=== PATIENT | male | born 1940 | race Caucasian/White ===

== ENCOUNTER 2018-12-26 11:37 | Inpatient (IN) ==
--- NOTE | 2018-12-26 12:07 | Emergency Department Note ---
Disposition Clinical Impression: Small bowel obstruction Disposition: Admitted As Inpatient Condition: Fair Time of Disposition: 12:53 General Adult HPI - General Chief complaint: ED Abdominal Pain Stated complaint: bowel abstruction Time Seen by Provider: 12/26/18 11:39 Source: EMS Limitations: no limitations Nursing Notes Reviewed: Yes Vital Signs Reviewed: Yes - History of Present Illness HPI Narrative: 78-year-old male with past medical history of thyroid disease, alcohol use disorder, hyperlipidemia, hypertension, CVA presents from the [place] with a confirmed case of small bowel obstruction. Patient states that he last had a bowel movement yesterday was normal, but throughout the night was vomiting overnight, and has not been able to eat today. He denies fevers, chills, past abdominal surgeries, or diarrhea, constipation. He did have a period of alternating diarrhea and constipation a few days ago, but his last bowel movement yesterday was normal. He currently does not have nausea after taking Zofran at the [facility] clinic, his current pain as a 3 out of 10 prior to arrival it was a 7 out of 10. He describes the pain as dull and achy He went to the [place] urgent care clinic, where he underwent lab testing and a CT of the abdomen and pelvis which showed a distal small bowel obstruction, and was transferred to [facility]. CT scan did not show any signs of malignancy. Pain Scale: 7 - Related Data Home Medications Medication Instructions Recorded Confirmed No Known Home Drugs 12/26/18 12/26/18 Allergies Allergy/AdvReac Type Severity Reaction Status Date / Time No Known Allergies Allergy Verified 02/18/16 13:05 All systems ED: reviewed and negative except as stated. Review of Systems: As Per HPI Constitutional: Denies: fever, chills, weakness, weight change Cardiovascular: Denies: chest pain Respiratory: Denies: cough, dyspnea, wheezes Gastrointestinal: Reports: abdominal pain, nausea, vomiting. Denies: diarrhea, constipation Genitourinary: Denies: urgency, dysuria Endocrine: Denies: fatigue Past Medical History - Past Medical History Attestation: Yes The following information was validated with the patient. Medical history: Reports: CVA, hyperlipidemia, hypertension Psychiatric history: Reports: no psych history - Social History Smoking Status: Smoker, status unknown Smokeless Tobacco Status: No Alcohol use: Reports: occasionally Drug use: Reports: none Physical Exam Vital signs noted please see nurse's notes. Gen.: Well-developed, well-nourished patient lying in bed who appears nontoxic. Head: Atraumatic, normocephalic. Eyes: Sclerae anicteric. No evidence of pallor, No evidence of xanthelasma ENT: Mucous membranes moist, no signs of inflammation or oral sores Heart: Regular rate and rhythm without appreciable murmur, gallops, or rubs. Chest: No signs of Spider Naevi or Gynaecomastia Lungs: Normal respiratory pattern without respiratory distress, lungs clear to auscultation bilaterally. Abdomen: Soft, non-tender, non-distended, no guarding, no rebound tenderness, or peritoneal signs. Bowel sounds present x4, No signs of ascites , no hepatosplenomegaly, No surgical scars, No masses, No bruising, No pulsatile masses, No striae, No caput medusa, Negative Mathew's sign, no tenderness at McBurney's point UG: No CVA tenderness, Skin: Warm and dry without rash, No petechia, No acanthosis nigracans, nor excoriations. No evidence of jaundice nor pallor. No signs of palmar erythema or nail changes Psychiatric: Normal mood and affect Musculoskeletal: No peripheral edema. No signs of digital clubbing Vascular: No Renal or Aortic Bruits - General Limitations: no limitations Course - Consultations Consultation #1: Acute care surgery Time: 12:52 Vital Signs Temperature 98.7 F 12/26/18 11:42 Pulse Rate 73 12/26/18 11:42 Respiratory Rate 16 12/26/18 11:42 Blood Pressure 162/89 12/26/18 11:42 O2 Sat by Pulse Oximetry 96 12/26/18 11:42 Temperature 98.7 F 12/26/18 11:42 Pulse Rate 73 12/26/18 11:42 Respiratory Rate 16 12/26/18 11:42 Blood Pressure 162/89 12/26/18 11:42 O2 Sat by Pulse Oximetry 96 12/26/18 11:42 Oxygen Delivery Oxygen Delivery Room Air Medical Decision Making - MDM Narrative Medical decision making narrative: Patient was greeted upon arrival to the emergency department, a thorough physical exam and history were obtained from the patient. Records from the [place] clinic were reviewed, and a consult to general surgery was placed for his small bowel obstruction. The patient was admitted to the hospital under to medical service under the care of Dr. Pope. DC labs: Troponin 0.015 AST 45 ALT 28 Total bilirubin 0.9 Direct bilirubin 0.1 Alkaline phosphatase 105 Calcium 9.3 Total protein 8.7 Albumin 4.2 Lipase 60 Amylase 30 Sodium 139 Potassium 4.7 Chloride 105 CO2 27 Glucose 183 BUN 20 Creatinine 1.16 GFR greater than 60 White blood count 11.5 hemoglobin 15.9 hematocrit 47.4 absolute neutrophil count 10.5 Chest x-ray shows that there is a streaky opacity within the right upper lobe of the lung this is similar to previous studies. CT shows a distal small bowel obstruction with free fluid within the pelvis diverticulosis and a enlarged prostate - Medical Records Medical records reviewed: Yes I reviewed the patient's medical records. - Lab Data Lab results reviewed: Yes I reviewed the patient's lab results. - Radiology Data Radiology results reviewed: Yes I reviewed the patient's radiology results. Attestation Statement - Attestation Attestation: I, Gil Nunez, examined this patient and my medical decision-making was reviewed with the WATCH TRAIN ASSEMBLER/PA/Advanced Practice Nurse/Resident Physician. I agree with the documented findings, disposition and treatment plan as described except to the extent set forth below. 78-year-old male presents emergency Department with concerns of abdominal pain. Patient was evaluated at the [facility] prior to arrival who obtained a CT of the abdomen pelvis which showed a distal small bowel obstruction. Patient denies hematochezia or melena or hematemesis. No recent trauma. No history of surgeries to the abdomen. Denies history of cancer. Patient will be admitted to hospitalist for further care and evaluation. The surgeon was consulted while he was in the emergency department. Surgeon will see in the hospital.
[2018-12-26] MEDS: 0.9 % Sodium Chloride 1,000 ML IVC SCH (13:02)
[2018-12-26] MEDS ORDERED: Naloxone 0.4 MG/ML INJ IVP PRN (15:33)
[2018-12-26] MEDS ORDERED: *HR* Promethazine 25 MG/ML VIAL IVP PRN ×2 (15:33→22:48)
[2018-12-26] MEDS ORDERED: Ondansetron 4 MG/2 ML VIAL IVP PRN (15:33)
--- NOTE | 2018-12-26 16:12 | Internal Med History&Physical ---
Date of Encounter: 12/26/18 Time of Encounter: 16:25 Internal Medicine - H&P: HPI Chief complaint: Abdominal pain, nausea and vomiting Plans for Post Hospital Care: Home History of present illness: Mr. Appiah is a 78 year old male patient with history of hypertension, previous stroke, intracranial aneurysm per history, hypothyroidism who does not take any medications due to personal preference presented to the ER with complaints of intractable nausea and vomiting that has been ongoing for the past week along with abdominal pain but got much more intense since yesterday afternoon. He reports that he had a bowel movement yesterday morning. After that he has not had any further bowel movements. He has had multiple episodes of nausea and vomiting since then. He received Zofran at the [place] where he initially presented and then in the ER and again on the floor. He continues to have severe abdominal pain is rated as 7 out of 10 in severity that improved to 3 out of 10 after he received oxycodone here. Pain is mainly located in his mid abdominal region. It is nonradiating. He denies any previous intra-abdominal surgeries. No prior episodes of small bowel obstruction. Past Med Surg Social Fam HX - Past Medical History Medical history: CVA, hyperlipidemia, hypertension Additional medical history: Hypothroidism, Claustrophobia,arrythmia,headaches, intracranial aneurysm Psychiatric history: no psych history - Past Surgical History Additional surgical history: diptheria at age of 6 - Social History Smoking Status: Smoker, status unknown Smokeless Tobacco Status: No Alcohol use: occasionally Drug use: none - Additional Family History Additional family history: Family history reviewed and found to be noncontributory at this time Internal Medicine - H&P: Meds No Known Home Drugs 12/26/18 [History] Allergy/AdvReac Type Severity Reaction Status Date / Time No Known Allergies Allergy Verified 02/18/16 13:05 All Systems PM: A 10-system review of systems was performed and is negative for pertinent findings except as documented above in the HPI. - Constitutional Constitutional: anorexia, malaise, no chills, no fever(s), no night sweats - EENT Eyes: no change in vision, no discharge, no pain, no photophobia Ears: no ear discharge, no ear pain, no tinnitus Nose, mouth and throat: no dysphagia, no nasal discharge, no neck pain, no sore throat - Cardiovascular Cardiovascular ROS IM: no chest pain, no diaphoresis, no dyspnea, no lightheaded ness, no palpitations, no syncope - Respiratory Respiratory: no cough, no dyspnea, no wheezing, no excessive phlegm production - Gastrointestinal Gastrointestinal: abdominal pain, nausea, vomiting, no diarrhea, no hematemesis, no hematochezia, no melena - Musculoskeletal Musculoskeletal ROS IM: no numbness, no tingling - Integumentary Integumentary IM: no rash, no unusual bruising - Neurological Neurological ROS: no confusion, no convulsions, no focal weakness, no numbness, no tingling, no tremor(s) - Hematologic/Lymphatic Hematologic/Lymphatic: no easy bruising - Constitutional Vitals: Temp Pulse Resp BP Pulse Ox 98.9 F 88 15 193/95 96 12/26/18 15:03 12/26/18 15:03 12/26/18 15:03 12/26/18 15:03 12/26/18 15:03 Exam: General: Patient is alert, no acute distress, oriented x 3, underweight Head: atraumatic, normocephalic, ENT: Mucous membranes dry Eye: normal appearance, PERRL, no scleral icterus, no conjunctival injection Neck: normal inspection, trachea midline, full ROM, no carotid bruits Chest: normal inspection, symmetric chest rise Respiratory: Good respiratory effort. Normal breath sounds. No wheezing or crackles. Cardiovascular: Regular rate and rhythm. s1 and s2 normal No clicks, rubs, gallops, or murmurs. No pedal edema Abdomen: Abdomen is soft, distended, tender in the epigastric region. Bowel sounds are absent Musculoskeletal: Spontaneously moving all extremities Skin: warm, dry, intact. Neuro: Alert oriented x 3 normal cranial nerves, no focal deficits Psych: Patient's affect is normal Internal Med - H&P Results - Labs Labs: 120, creatinine 1.161 WBC 11.5, platelets 213, hemoglobin 15.9 - Impressions CT of the abdomen and pelvis showed distal small bowel obstruction - Assessment and Plan (1) Small bowel obstruction Current Visit: Yes Status: Acute Assessment and plan: Acute distal small bowel obstruction (2) Hypertensive urgency Current Visit: Yes Status: Acute (3) Hyperlipidemia Current Visit: Yes Status: Chronic Qualifiers: Hyperlipidemia type: other hyperlipidemia Qualified Code(s): E78.49 - Other hyperlipidemia; E78.4 - Other hyperlipidemia (4) Hypothyroidism Current Visit: Yes Status: Chronic Qualifiers: Hypothyroidism type: other Qualified Code(s): E03.8 - Other specified hypothyroidism - Summary of Assessment and Plan Summary of Assessment and Plan: Acute distal small bowel obstruction: CT scan shows distal small bowel obstruction. Will keep patient nothing by mouth. Place NG tube and connected to low intermittent suction. Symptomatic treatment for pain and nausea. Consulted surgery. IV fluids. High risk for complications. Hypertensive urgency: Blood pressure is severely elevated. Patient not on any medications at home for this. We will place him on intravenous medications as needed to bring systolic blood pressure less than 160. Medical records from the [place] show that the patient has a history of intracranial aneurysm. Uncontrolled hypertension does increase his risk of hemorrhagic from this. Explained to the patient about this. However he was becoming more somnolent during my interview as he received oxycodone. We will readdress this later. In the meantime we will continue to monitor blood pressure and treat with intravenous medications. Hypothyroidism: Check free T4 and TSH levels. Hyperlipidemia: Check lipid profile. DVT prophylaxis with SCDs for now. - Time Spent With Patient Total time spent is greater than 50% in coordination of care (as documented) at patient's floor/unit and/or counseling patient:
[2018-12-26] MEDS ORDERED: Ketorolac 15 MG/ML VIAL IVP PRN (17:10)
--- NOTE | 2018-12-26 19:15 | AcuteCare Surgery Consult Note ---
Date of Encounter: 12/26/18 Time of Encounter: 19:05 Assessment and Plan (1) Small bowel obstruction Current Visit: Yes Status: Acute 78M with a high grade distal small bowel obstruction with abdominal pain, more tender than expected; concern for GI mass, ischemia, or adhesion NPO IVF NG to LIWS IV abx History of Present Illness Consult date: 12/26/18 Reason for consult: abdominal pain History of present illness: 78M PMH significant for HTN, CVA who presents with one day of nausea and vomiting (bilious in nature). when evaluating the medial record, the patient reportedly has had nausea and vomiting for the past week. No reports of fevers, chills, chest pain, nor shortness of breath. No sick contacts. When talking more to the patient he has never had a colonoscopy. he does not report any dark tarry stools, bloody stools. 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 In addition he has never had any abdominal surgeries before and his mom at 79 from colon cancer. He reports that he had a bowel movement yesterday morning. In addition the patient has abdominal pain is rated as 7 out of 10 in severity that improved to 3 out of 10 after he received oxycodone here. Pain is mainly located in his mid abdominal region. It is nonradiating. Past Med Surg Social Fam HX - Past Medical History Medical history: CVA, hyperlipidemia, hypertension Additional medical history: Hypothroidism, Claustrophobia,arrythmia,headaches, intracranial aneurysm Psychiatric history: no psych history - Past Surgical History Additional surgical history: diptheria at age of 6 - Social History Smoking Status: Smoker, status unknown Smokeless Tobacco Status: No Alcohol use: occasionally Drug use: none - Additional Family History Additional family history: mother: colon cancer Medications and Allergies No Known Home Drugs 12/26/18 [History] Allergy/AdvReac Type Severity Reaction Status Date / Time No Known Allergies Allergy Verified 02/18/16 13:05 Review of Systems All systems PM: 12 point ROS negative besides HPI findings General Surgery Exam Initial Vital Signs Temp Pulse Resp BP Pulse Ox 98.7 F 73 16 162/89 96 12/26/18 11:42 12/26/18 11:42 12/26/18 11:42 12/26/18 11:42 12/26/18 11:42 - General physical appearance no distress, cachectic - Eyes PERRL, normal ocular movement - ENT normocephalic - Neck trachea midline, no lymphadectomy - Respiratory normal expansion, normal respiratory effort - Cardiovascular Cardiovascular exam: Present: RRR - Abdomen Abdomen general surgery: Present: soft, tender Abdominal Tenderness: Present: diffusely - Integumentary Integumentary general surgery: Present: warm and dry, no abnormal pigmentation - Neurologic Present: CN 2-12 grossly intact - Musculoskeletal Present: normal posture - Psychiatric Psychiatric general surgery: Present: A&Ox3 Exam Initial Vital Signs Temp Pulse Resp BP Pulse Ox 98.7 F 73 16 162/89 96 12/26/18 11:42 12/26/18 11:42 12/26/18 11:42 12/26/18 11:42 12/26/18 11:42 Results - Labs Abnormal lab results POC Glucose 180 mg/dL (70-99) H 12/26/18 16:55 All other labs normal. - Imaging CT scan - abdomen: report reviewed, image reviewed CT scan - pelvis: report reviewed, image reviewed Consult Discharge Plan - Plan [facility]errals: [facility] [Primary Care Provider] -
--- NOTE | 2018-12-26 20:15 | Anesthesia Evaluation PreOp ---
Date of Encounter: 12/26/18 Time of Encounter: 20:13 - Past History Planned Operation: Exlap Cardiac History: HTN, Hyperlipidemia Pulmonary History: Former smoker BAND TUMBLER History: CVA (with no residual deficit), Other (intracranial aneurysm, GOLDEN) Other Medical History: Other (weight los) Anesthesia History: No Prior Anesthetic Complications, Past Anesthesia (hand) Alcohol Use: occasionally Drug use: none Medications and Allergies No Known Home Drugs 12/26/18 [History] Allergy/AdvReac Type Severity Reaction Status Date / Time No Known Allergies Allergy Verified 02/18/16 13:05 - Meds/Allergy Pre-op Review Medications Reviewed: Yes Allergies Reviewed: Yes Beta Blockers on Current Med List: No Anesthesia Results - Labs NH labs: Troponin 0.015 AST 45 ALT 28 Total bilirubin 0.9 Direct bilirubin 0.1 Alkaline phosphatase 105 Calcium 9.3 Total protein 8.7 Albumin 4.2 Lipase 60 Amylase 30 Sodium 139 Potassium 4.7 Chloride 105 CO2 27 Glucose 183 BUN 20 Creatinine 1.16 GFR greater than 60 White blood count 11.5 hemoglobin 15.9 hematocrit 47.4 absolute neutrophil count 10.5 Chest x-ray shows that there is a streaky opacity within the right upper lobe of the lung this is similar to previous studies. CT shows a distal small bowel obstruction with free fluid within the pelvis diverticulosis and a enlarged prostate Anesthesia Exam Vital Signs/O2 Sat, Most Current Temp Pulse Resp BP Pulse Ox 98.0 F 105 15 162/110 97 12/26/18 19:06 12/26/18 19:06 12/26/18 19:06 12/26/18 19:06 12/26/18 19:06 - HEENT Pupil (Motor): Pupils equal, EOMI Mallampati: II Teeth: Edentulous Oral Opening: Greater than 3 - BAND TUMBLER LOC: Oriented BAND TUMBLER Motor: Normal RUE, Normal LUE, Normal RLE, Normal LLE, Normal Face BAND TUMBLER Sensory: Normal: RUE, LUE, RLE, LLE, Face - Cardiac Rhythm: Regular - Pulmonary Breath Sounds: bilateral Clear Respiratory Effort: Symmetrical Anesthesia Assess/Plan ASA Score: 3 Level of consciousness: Cooperative Anesthetic Plan: General Monitoring Plan: Standard Monitors Recovery Plan: PACU
[2018-12-26] MEDS: *HR* Metoprolol 5 MG/5 ML VIAL IVP SCH (20:45)
[2018-12-26] MEDS ORDERED: *HR* Rocuronium Bromide 50 MG/5 ML VIAL ONE (22:28)
[2018-12-26] MEDS ORDERED: Lidocaine -MPF 2% 2 ML VIAL ONE (22:28)
[2018-12-26] MEDS ORDERED: *HR* Succinylcholine 200 MG/10 ML VIAL IVP ONE (22:28)
[2018-12-26] MEDS ORDERED: *HR* FentaNYL (PF) 100 MCG/2 ML VIAL ONE ×2 (22:28→23:55)
[2018-12-26] MEDS ORDERED: *HR* Propofol 200 MG/20 ML VIAL IVP ONE (22:28)
[2018-12-26] MEDS ORDERED: *HR* FentaNYL (PF) 100 MCG/2 ML VIAL IVP PRN (22:48)
[2018-12-26] MEDS ORDERED: *HR* Meperidine 25 MG/ML SYRINGE IVP PRN (22:48)
[2018-12-26] MEDS ORDERED: Ondansetron 4 MG/2 ML VIAL IVP ONE (22:48)
[2018-12-26] MEDS ORDERED: Acetaminophen IV 1,000 MG/100 ML INFUS..BTL ONE (22:54)
[2018-12-26] MEDS ORDERED: CefOXitin 2,000 MG VIAL ONE (23:02)
[2018-12-26] MEDS ORDERED: Dexamethasone 4 MG/ML VIAL ONE (23:38)
[2018-12-26] MEDS ORDERED: Ondansetron 4 MG/2 ML VIAL ONE (23:38)
[2018-12-27] MEDS ORDERED: Haloperidol Lactate 5 MG/ML VIAL ONE (01:19)
--- NOTE | 2018-12-27 01:25 | Operative Note ---
Date of procedure: 12/27/18 Pre-op diagnosis: small bowel obstruction Post-op diagnosis: other (adhesions, ischemic bowel) Procedure: exploratory laparotomy small bowel resection Implants: none Complications: none Anesthesia: GETA Local Anesthetics: 0.5% Sensorcaine HCL SubQ (cc) Surgeon: Andrey Vera Was there an budget assistant present: No Dairy Lab Technician Other: Shannon Mcadams Estimated blood loss (cc): 5 Specimen: small bowel, 69cm Condition: stable Disposition: PACU Procedure in Detail: patient was brought into the operating room suite. placed in the supine position. mechanical dvt prophylaxis was placed. he underwent smooth induction of anesthesia. the patient was prepped and draped in the usual fashion. preoperative antibiotics were given. a timeout was held identifying correct patient, pathology, procedure, and physician. I created a midline incision, dissected through the soft tissue layers to enter into the abdomen. Immediately there was over 800cc of serous fluid suctioned. I was able to appreciated ischemic bowel that included about 69cm of jejunum. There was a small area within the ileum that was stenosed. I was also able to appreciate edema and what appeared to be an adhesive gay along the mesentery. I suspect that the bowel was adhered to the mesentery and, in doing so, lost the blood supply to the bowel that was . I measured the bowel that appeared viable and it measured about 225cm. I gave time for resuscitation intraoperatively to see if the bowel would regain its color and function. It did not so the decision was made to resect the ischemic bowel. I created mesenteric windows proximally and distally to the ischemic bowel, stapled with the JAMES 75mm stapler. I then used the impact machine to ligate the mesentery. I then created an enterotomy on both the proximal and distal limb, inserted the JAMES 75mm stapler, and created the side to side anastamosis. I then used the TIA stapler to close the enterotomy. I then used 3-0 silk sutures to make lembert sutures to take the tension off of the staple line. I then closed the mesenteric defect with 3-0 PDS in a running fashion. I closed the fascia in a running fashion with the looped PDS suture. I then closed the skin with myriam and used the JORJE dressing to cover the myriam. The patient tolerated the procedure well and was escorted to PACu in stable condition
--- NOTE | 2018-12-27 01:57 | Anesthesia Evaluation Post Op ---
Date of Encounter: 12/27/18 Time of Encounter: 01:56 - Vital Signs Vital Signs: Vital Signs/O2 Sat, Most Current Temp Pulse Resp BP Pulse Ox 100.5 F H 111 15 150/74 95 12/27/18 01:44 12/27/18 01:44 12/27/18 01:44 12/27/18 01:44 12/27/18 01:44 - Lungs Lungs: Clear Ascult./Percussion - Airway Airway: Non-obstructed - Cardiovascular Regular Rate - Mental Status Mental Status: Baseline Status (initially confused on arrival to pacu, resolved with 5mg IV haldol and 100mcg fentanyl) - Pain Pain Scale: 0 Pain Scale used: Numeric (1 - 10) - Nausea Vomiting Nausea Vomiting: Not Present - Hydration Hydration: NPO, Spaulding catheter - Discharge PostOp Status: Transfer Patient to floor
[2018-12-27] MEDS ORDERED: Naloxone 0.4 MG/ML INJ IVP PRN (02:03)
[2018-12-27] MEDS ORDERED: *HR* Promethazine 25 MG/ML VIAL IVP PRN (02:03)
[2018-12-27] MEDS ORDERED: Ondansetron 4 MG/2 ML VIAL IVP PRN (02:03)
[2018-12-27] MEDS: Morphine PCA 30 MG/ 30 ML 30 ML PCA.VIAL IVC PRN (02:52)
[2018-12-27] MEDS ORDERED: Haloperidol Lactate 5 MG/ML VIAL IM ONE (03:12)
[2018-12-27] MEDS: 0.9 % Sodium Chloride 1,000 ML IVC SCH ×4 (03:30→16:30)
[2018-12-27] MEDS: *HR* Metoprolol 5 MG/5 ML VIAL IVP SCH ×5 (04:05→23:08)
[2018-12-27] MEDS: *HR* Heparin 5,000 UNIT/ML VIAL SQ SCH ×3 (05:42→21:18)
--- NOTE | 2018-12-27 09:24 | AcuteCareSurgery Progress Note ---
Date of Encounter: 12/27/18 Time of Encounter: 07:00 - Assessment and Plan (1) S/P exploratory laparotomy Current Visit: Yes Status: Acute POD#1 Ex lap with SBR for SBO. Findings were c/w bowel ischemia of what was most likely a closed loop obstruction. Pt doing well. Maintain NGT until increased bowel function. Maintain lara until nearer 24 hours post-op. Maintain current pain control. (2) Small bowel obstruction Current Visit: Yes Status: Acute (3) S/P small bowel resection Current Visit: Yes Status: Acute Subjective Patient reports: no new complaints, feels better, pain is less, no flatus, no bowel movement, afebrile Narrative: NPO with NGT in place Objective Vital Signs - Last 8 Hours Temp Pulse Resp BP Pulse Ox 12/27/18 07:30 98.4 F 88 14 133/67 95 12/27/18 05:45 100.8 F H 82 16 128/58 94 12/27/18 04:54 98.6 F 95 16 131/56 93 12/27/18 03:48 98.6 F 95 16 124/60 94 12/27/18 03:06 100.5 F H 99 16 125/62 92 12/27/18 02:40 100.2 F H 92 14 128/63 94 12/27/18 02:05 100.1 F H 98 14 142/58 95 12/27/18 01:44 100.5 F H 111 15 150/74 95 12/27/18 01:34 101 14 154/74 95 12/27/18 01:24 112 24 175/89 95 Intake and Output 12/26/18 12/27/18 12/27/18 23:59 07:59 15:59 Intake Total 0 / 0 0 / 0 Output Total 570 / 570 375 / 375 Balance -570 / -570 -375 / -375 Intake: Oral 0 / 0 0 / 0 Output: Urine 100 / 100 Gastric Tube Lavage Amount 470 / 470 Right Nare 470 / 470 Estimated Blood Loss 5 / 5 Urine Amount (Catheter) 120 / 120 Catheter 250 / 250 Urethral (Lara) 150 / 150 Other: Weight 55.31 kg Blood Glucose* 180 138 Patient Weight 12/27/18 23:59 Weight 55.31 kg - General physical appearance no distress, moderate pain (as expected post-op) - Eyes PERRL, normal ocular movement - ENT no congestion, dry mucosa - Neck Neck exam: trachea midline, no venous distension - Respiratory normal respiratory effort, clear to auscultation - Cardiovascular Cardiovascular exam: Present: RRR. Absent: JVD - Abdomen Abdomen: Present: soft, tender. Absent: distended Additional Comments: Midline incision. NGT in place. BS hypoactive - Incision Incision: Present: clean and dry, intact - Genitourinary normal penis with no external lesions, other (lara in place) - Neurologic CN 2-12 grossly intact - Musculoskeletal normal posture - Psychiatric oriented to time, oriented to person, oriented to place Consult Discharge Plan - Plan [facility]errals: [facility] [Primary Care Provider] -
[2018-12-27] MEDS: Piperacillin/Tazobactam 3.375 GM in 0.9 % Sodium Chloride Mini Bag 100 ML IVPB SCH ×3 (09:36→23:08)
--- NOTE | 2018-12-27 11:20 | Internal Med Progress Note ---
Hospitalist Progress Note - Encounter Date of Encounter: 12/27/18 Time of Encounter: 09:15 - Subjective Interval History: Patient is somnolent but easily awakes. Pain is well controlled with INTERNAL CONTROLS MANAGER pump. NG tube in place. Patient underwent surgery last night with exploratory laparotomy and small bowel resection. - Exam Vitals: Temp Pulse Resp BP Pulse Ox 97.7 F 96 14 141/62 95 12/27/18 11:01 12/27/18 11:01 12/27/18 11:01 12/27/18 11:01 12/27/18 11:01 Exam: General: Patient is somnolent, mild distress, oriented x 3 ENT: Mucous membranes moist, NG tube in place Respiratory: Good respiratory effort. Normal breath sounds. No wheezing or crackles. Cardiovascular: Regular rate and rhythm. s1 and s2 normal No clicks, rubs, gallops, or murmurs. No pedal edema Abdomen: Abdomen is soft, distended and tender. Bowel sounds are absent Musculoskeletal: Spontaneously moving all extremities Skin: warm, dry, intact. Neuro: Somnolent but easily awakes oriented x 3 normal cranial nerves, no focal deficits - Assessment and Plan (1) Small bowel obstruction Current Visit: Yes Status: Acute (2) Hypertensive urgency Current Visit: Yes Status: Acute (3) Hyperlipidemia Current Visit: Yes Status: Chronic (4) Hypothyroidism Current Visit: Yes Status: Chronic DVT Prophylaxis: Continue subcutaneous heparin - Summary of Assessment and Plan Summary of Assessment and Plan: Acute distal small bowel obstruction with small bowel ischemia: Status post exploratory laparotomy and small bowel resection. Postop day 1. Continue NG tube. Follow surgery recommendations. Patient has not passed flatus yet. Continue supportive care. IV fluids. Antibiotics. Pain control with INTERNAL CONTROLS MANAGER pump. Essential hypertension/Hypertensive urgency: Urgency Resolved. Patient's blood pressure is better controlled. Continue IV Lopressor every 6 hours at a lower dose. Hypothyroidism: Check free T4 and TSH levels. Hyperlipidemia: Checking lipid profile. DVT prophylaxis with subcutaneous heparin High risk for complications as patient is on the INTERNAL CONTROLS MANAGER pump - Time Spent with Patient Total time spent is greater than 50% in coordination of care (as documented) at patient's floor/unit and/or counseling patient: Internal Medicine: Result - Impressions Impressions KUB X-Ray 12/26/18 18:32 IMPRESSION: The nasogastric tube should be advanced approximately 10 cm. D/ / Myron Jansen MD / Myron Jansen MD Interpreting Provider: Myron Jansen MD X-Ray 12/26/18 19:52 IMPRESSION: Interval advancement of the enteric tube with the tip in the fundus of the stomach. D/ / Evens Lee MD / Evens Lee MD Interpreting Provider: Evens Lee MD Consult Discharge Plan - Plan [facility]errals: [facility] [Primary Care Provider] - (3) Hyperlipidemia Qualifiers: Hyperlipidemia type: other hyperlipidemia Qualified Code(s): E78.49 - Other hyperlipidemia; E78.4 - Other hyperlipidemia (4) Hypothyroidism Qualifiers: Hypothyroidism type: other Qualified Code(s): E03.8 - Other specified hypothyroidism
[2018-12-27 12:08] LABS: Hemoglobin 13.9 g/dL (12.9-16.9); Mean Corpuscular HGB Conc 33.1 g/dL (31.6-35.5); Mean Corpuscular Hemoglobin 28.8 pg (28.0-33.3); Mean Platelet Volume 11.4 fL (9.4-12.4); Platelet Count 154 K/mcL (140-400); Red Blood Count 4.83 M/mcL (4.19-5.50); Red Cell Distribution Width 13.2 % (11.5-14.5); White Blood Count 10.7 K/mcL (4.3-11.1)
[2018-12-27 12:31] LABS: BUN/Creatinine Ratio 24 (6-26); Blood Urea Nitrogen 26 mg/dL (8-23); Calcium 7.9 mg/dL (8.6-10.3); Carbon Dioxide 25 mEq/L (23-29); Chloride 112 mEq/L (98-107); Chol/HDL Ratio 2.8 (0-4.9); Cholesterol 158 mg/dL (< 200); Glucose 142 mg/dL (70-105); HDL Cholesterol 56 mg/dL (40-59); LDL Cholesterol,Calculated 91 mg/dL (0-99); Osmolality,Calculated 303 (280-300); Potassium 3.6 mEq/L (3.5-5.1); Sodium 143 mEq/L (136-145); Triglycerides 54 mg/dL (< 150); eGFR For African Americans > 60 (> 60); eGFR For Non-African Americans > 60 (> 60)
[2018-12-27 12:45] LABS: Thyroid Stimulating Hormone 8.478 mcIU/mL (0.340-5.600)
[2018-12-27 12:49] LABS: Lymphocytes # 0.3 K/mcL (0.6-4.6); Monocytes # 0.4 K/mcL (0.0-1.3); Platelet Estimate Normal (Normal)
[2018-12-27 12:59] LABS: Estimated Average Glucose 114 mg/dl
[2018-12-28] MEDS: 0.9 % Sodium Chloride 1,000 ML IVC SCH ×3 (04:00→15:00)
[2018-12-28 04:50] LABS: Hematocrit 38.9 % (37.5-50.1); Hemoglobin 12.7 g/dL (12.9-16.9); Mean Corpuscular HGB Conc 32.6 g/dL (31.6-35.5); Mean Corpuscular Hemoglobin 28.8 pg (28.0-33.3); Mean Corpuscular Volume 88.2 fL (83.0-100.0); Mean Platelet Volume 11.5 fL (9.4-12.4); Platelet Count 121 K/mcL (140-400); Red Blood Count 4.41 M/mcL (4.19-5.50); Red Cell Distribution Width 13.4 % (11.5-14.5); White Blood Count 10.6 K/mcL (4.3-11.1)
[2018-12-28 05:01] LABS: Magnesium 2.2 mg/dL (1.6-2.6); Phosphorous 2.5 mg/dL (2.7-4.5)
[2018-12-28 05:02] LABS: BUN/Creatinine Ratio 21 (6-26); Blood Urea Nitrogen 22 mg/dL (8-23); Calcium 7.8 mg/dL (8.6-10.3); Carbon Dioxide 26 mEq/L (23-29); Chloride 113 mEq/L (98-107); Glucose 112 mg/dL (70-105); Osmolality,Calculated 304 (280-300); Potassium 3.7 mEq/L (3.5-5.1); Sodium 145 mEq/L (136-145); eGFR For African Americans > 60 (> 60); eGFR For Non-African Americans > 60 (> 60)
[2018-12-28] MEDS: *HR* Heparin 5,000 UNIT/ML VIAL SQ SCH ×3 (05:06→21:38)
[2018-12-28] MEDS: *HR* Metoprolol 5 MG/5 ML VIAL IVP SCH ×3 (05:07→17:48)
[2018-12-28 05:31] LABS: Lymphocytes # 2.5 K/mcL (0.6-4.6); Monocytes # 0.6 K/mcL (0.0-1.3); Neutrophils # 7.4 K/mcL (1.6-8.9); Platelet Estimate Normal (Normal)
[2018-12-28] MEDS: Piperacillin/Tazobactam 3.375 GM in 0.9 % Sodium Chloride Mini Bag 100 ML IVPB SCH ×2 (08:02→15:10)
--- NOTE | 2018-12-28 08:22 | AcuteCareSurgery Progress Note ---
Date of Encounter: 12/28/18 Time of Encounter: 08:21 - Assessment and Plan (1) S/P exploratory laparotomy Current Visit: Yes Status: Acute The patient is postop day 2 from a exploration with small bowel resection. Await return of bowel function. Continue with NG tube to low intermittent wall suction. Will consider clamping NG tube in the next 24 hours. Up and out of bed with ambulation. Subjective Patient reports: other (Patient denies any nausea. No BM or flatus. Mild incisional pain.) Objective Vital Signs - Last 8 Hours Temp Pulse Resp BP Pulse Ox 12/28/18 06:44 98.5 F 85 15 133/66 95 12/28/18 03:52 99.2 F 73 16 133/68 94 Intake and Output 12/27/18 12/28/18 12/28/18 23:59 07:59 15:59 Intake Total 1100 / 1200 1100 / 1100 Output Total 400 / 1250 350 / 350 Balance 700 / -50 750 / 750 Intake: IV Fluids 1100 / 1200 1100 / 1100 0.9 % Sodium Chloride 1,000 ML 1000 / 1000 1000 / 1000 @ 100 mls/hr IVC .Q10H NGA Rx#: [id number] Zosyn 3.375 GM In 0.9 % Sodium 100 / 200 100 / 100 Chloride (Mini-Bag +) 100 ML @ 25 mls/hr IVPB Q8HR NGA Rx#: [id number] Output: Urine 250 / 250 Catheter 200 / 200 Gastric Drainage 150 / 175 150 / 150 Other: Weight 55.1 kg Blood Glucose* 122 104 Patient Weight 12/28/18 23:59 Weight 55.1 kg - Respiratory normal expansion, normal respiratory effort - Abdomen Abdomen: Present: soft, tender (mild incisional pain. Dressing in place. NGT to LIWS) - Labs 12/28/18 04:19 12/28/18 04:19 Diabetes panel 12/27/18 12/27/18 12/28/18 Range/Units 11:33 11:33 04:19 Sodium 143 145 (136-145) mEq/L Potassium 3.6 3.7 (3.5-5.1) mEq/L Chloride 112 H 113 H (98-107) mEq/L Carbon Dioxide 25 26 (23-29) mEq/L BUN 26 H 22 (8-23) mg/dL Creatinine 1.08 1.05 (0.70-1.30) mg/dL Glucose 142 H 112 H (70-105) mg/dL Hemoglobin A1c 5.6 ( - 5.6) % Calcium 7.9 L 7.8 L (8.6-10.3) mg/dL Triglycerides 54 (< 150) mg/dL HDL Cholesterol 56 (40-59) mg/dL Thyroid panel 12/27/18 Range/Units 11:33 TSH 8.478 H (0.340-5.600) mcIU/mL Calcium panel 12/27/18 12/28/18 12/28/18 Range/Units 11:33 04:19 04:19 Calcium 7.9 L 7.8 L (8.6-10.3) mg/dL Phosphorus 2.5 L (2.7-4.5) mg/dL Pituitary panel 12/27/18 12/28/18 Range/Units 11:33 04:19 Sodium 143 145 (136-145) mEq/L Potassium 3.6 3.7 (3.5-5.1) mEq/L Chloride 112 H 113 H (98-107) mEq/L Carbon Dioxide 25 26 (23-29) mEq/L BUN 26 H 22 (8-23) mg/dL Creatinine 1.08 1.05 (0.70-1.30) mg/dL Glucose 142 H 112 H (70-105) mg/dL Calcium 7.9 L 7.8 L (8.6-10.3) mg/dL TSH 8.478 H (0.340-5.600) mcIU/mL Adrenal panel 12/27/18 12/28/18 Range/Units 11:33 04:19 Sodium 143 145 (136-145) mEq/L Potassium 3.6 3.7 (3.5-5.1) mEq/L Chloride 112 H 113 H (98-107) mEq/L Carbon Dioxide 25 26 (23-29) mEq/L BUN 26 H 22 (8-23) mg/dL Creatinine 1.08 1.05 (0.70-1.30) mg/dL Glucose 142 H 112 H (70-105) mg/dL Calcium 7.9 L 7.8 L (8.6-10.3) mg/dL - VTE Documentation of Mechanical Device: Intermittent pneumatic compression device Consult Discharge Plan - Plan Referrals: [facility] [Primary Care Provider] -
--- NOTE | 2018-12-28 11:37 | Internal Med Progress Note ---
Hospitalist Progress Note - Encounter Date of Encounter: 12/28/18 Time of Encounter: 09:20 - Subjective Interval History: Patient awake and alert. Was working with physical therapy when I evaluated him. Has not had a bowel movement. Feels more active today. Abdominal pain is well controlled. - Exam Vitals: Temp Pulse Resp BP Pulse Ox 98.3 F 73 15 143/71 96 12/28/18 09:58 12/28/18 09:58 12/28/18 09:58 12/28/18 09:58 12/28/18 09:58 Exam: General: Patient is somnolent, mild distress, oriented x 3 ENT: Mucous membranes moist, NG tube in place Respiratory: Good respiratory effort. Normal breath sounds. No wheezing or crackles. Cardiovascular: Regular rate and rhythm. s1 and s2 normal No clicks, rubs, gallops, or murmurs. No pedal edema Abdomen: Abdomen is soft, mildly tender. Bowel sounds are absent Musculoskeletal: Spontaneously moving all extremities Skin: warm, dry, intact. Neuro: Somnolent but easily awakes oriented x 3 normal cranial nerves, no focal deficits - Assessment and Plan (1) Small bowel obstruction Current Visit: Yes Status: Acute (2) Hypertensive urgency Current Visit: Yes Status: Acute (3) Hyperlipidemia Current Visit: Yes Status: Chronic (4) Hypothyroidism Current Visit: Yes Status: Chronic DVT Prophylaxis: Continue subcutaneous heparin - Summary of Assessment and Plan Summary of Assessment and Plan: Acute distal small bowel obstruction with small bowel ischemia: Status post exploratory laparotomy and small bowel resection. Postop day 2. Surgery managing. Consider clamping NG tube in the next 24 hours. Patient has not passed flatus yet. Will DC Spaulding catheter. Continue pain control with CONCRETE MIXER OPERATOR HELPER pump. Continue IV fluids and antibiotics. Essential hypertension: Blood pressure remains well controlled. Continue current management. Hypothyroidism: TSH levels are elevated. Will place patient on IV levothyroxine as he is nothing by mouth.. Hyperlipidemia: Lipid profile within normal limits. DVT prophylaxis with subcutaneous heparin High risk for complications as patient is on the CONCRETE MIXER OPERATOR HELPER pump - Time Spent with Patient Total time spent is greater than 50% in coordination of care (as documented) at patient's floor/unit and/or counseling patient: Internal Medicine: Result - Labs CBC & Chem 7: 12/28/18 04:19 12/28/18 04:19 Labs: Short CBC 12/27/18 12/28/18 Range/Units 11:33 04:19 WBC 10.7 10.6 (4.3-11.1) K/mcL Hgb 13.9 12.7 L (12.9-16.9) g/dL Hct 42.0 38.9 (37.5-50.1) % Plt Count 154 121 L (140-400) K/mcL Neutrophils # 10.0 H 7.4 (1.6-8.9) K/mcL BMP 12/27/18 12/28/18 11:33 04:19 Sodium 143 145 Potassium 3.6 3.7 Chloride 112 H 113 H Carbon Dioxide 25 26 BUN 26 H 22 Creatinine 1.08 1.05 Glucose 142 H 112 H Calcium 7.9 L 7.8 L - VTE Documentation of Mechanical Device: Intermittent pneumatic compression device Consult Discharge Plan - Plan Referrals: [facility] [Primary Care Provider] - _ (3) Hyperlipidemia Qualifiers: Hyperlipidemia type: other hyperlipidemia Qualified Code(s): E78.49 - Other hyperlipidemia; E78.4 - Other hyperlipidemia (4) Hypothyroidism Qualifiers: Hypothyroidism type: other Qualified Code(s): E03.8 - Other specified hypothyroidism
--- NOTE | 2018-12-28 13:59 | Physician Discharge Referral ---
Home Health/Hosp Referral Info Transfer to: Home Health Provider in Charge Post Discharge: PCP - Diagnosis (1) Small bowel obstruction Priority: Primary Status: Acute (2) Hypertensive urgency Priority: Secondary Status: Acute (3) Hyperlipidemia Priority: Secondary Status: Chronic (4) Hypothyroidism Priority: Secondary Status: Chronic - Respiratory Orders Smoking Cessation: Smoking cessation has been advised. For more information, call the [place] Tobacco Quit Line at 1-140-JGZL-NOW. - Diet/Nutrition Diet/Nutrition Orders: Cardiac - Activity Activity Orders: Walker - Services Needed Following services are medically necessary services: Nursing, Physical Therapy, Occupational Therapy - Transfer Medications Home Medications: No Known Home Drugs 12/26/18 [History] Allergies/Adverse Reactions: Allergy/AdvReac Type Severity Reaction Status Date / Time No Known Allergies Allergy Verified 12/27/18 14:14 Certification: Further, I certify that my clinical findings support that this patient is homebound (i.e. absences from home require considerable and taxing effort and are for medical reasons or jehovah's witness services or infrequently or short duration when for other reasons) because: Homebound Reason: Patient requires assistance of a person or device to safely leave home Attestation: My signature below is to certify that this patient is under my care and that I, or nurse practitioner, or a physician's assistant professor of psychology working with me, has a [id number] encounter with this patient.
[2018-12-29] MEDS: Piperacillin/Tazobactam 3.375 GM in 0.9 % Sodium Chloride Mini Bag 100 ML IVPB SCH ×4 (00:08→22:58)
[2018-12-29] MEDS: 0.9 % Sodium Chloride 1,000 ML IVC SCH ×2 (00:09→11:22)
[2018-12-29] MEDS: *HR* Metoprolol 5 MG/5 ML VIAL IVP SCH ×5 (00:09→22:57)
[2018-12-29 02:29] LABS: Basophils % 0.3 %; Red Cell Distribution Width 13.2 % (11.5-14.5)
[2018-12-29 02:31] LABS: Eosinophils % 0.5 %; Hematocrit 37.9 % (37.5-50.1); Immature Granulocytes % 0.2 % (0-4); Immature Platelets 6.6 % (1.1-6.1); Lymphocytes # 1.3 K/mcL (0.6-4.6); Lymphocytes % 15.1 %; Mean Corpuscular HGB Conc 31.7 g/dL (31.6-35.5); Mean Corpuscular Hemoglobin 28.6 pg (28.0-33.3); Mean Corpuscular Volume 90.2 fL (83.0-100.0); Mean Platelet Volume 11.7 fL (9.4-12.4); Monocytes # 0.5 K/mcL (0.0-1.3); Monocytes % 5.7 %; Neutrophils # 6.9 K/mcL (1.6-8.9); Segmented Neutrophils % 78.2 %; White Blood Count 8.8 K/mcL (4.3-11.1)
[2018-12-29 02:33] LABS: Platelet Count 96 K/mcL (140-400)
[2018-12-29 02:49] LABS: BUN/Creatinine Ratio 22 (6-26); Blood Urea Nitrogen 21 mg/dL (8-23); Calcium 7.9 mg/dL (8.6-10.3); Carbon Dioxide 25 mEq/L (23-29); Chloride 110 mEq/L (98-107); Glucose 82 mg/dL (70-105); Osmolality,Calculated 296 (280-300); Potassium 3.5 mEq/L (3.5-5.1); Sodium 142 mEq/L (136-145); eGFR For African Americans > 60 (> 60); eGFR For Non-African Americans > 60 (> 60)
[2018-12-29 02:57] LABS: Platelet Estimate Slight Decrease (Normal)
[2018-12-29] MEDS: *HR* Heparin 5,000 UNIT/ML VIAL SQ SCH ×3 (05:04→22:52)
[2018-12-29] MEDS: Morphine PCA 30 MG/ 30 ML 30 ML PCA.VIAL IVC PRN (05:05)
--- NOTE | 2018-12-29 10:50 | AcuteCareSurgery Progress Note ---
Date of Encounter: 12/29/18 Time of Encounter: 10:49 - Assessment and Plan (1) S/P exploratory laparotomy Current Visit: Yes Status: Acute The patient is postop day 3 from a exploration with small bowel resection. He has good bowel sounds and is been having flatus since yesterday evening. Will advance to a clear liquid diet. Continue to follow and await for the return of bowel function. We will likely advance to either full liquids or soft foods t omorrow. Subjective Patient reports: other (Patient's NG tube came out iatrogenically yesterday. Currently the patient states these been having flatus and denies any nausea or vomiting or abdominal pain.) Objective Vital Signs - Last 8 Hours Temp Pulse Resp BP Pulse Ox 12/29/18 06:42 98.4 F 61 15 133/70 94 Intake and Output 12/28/18 12/29/18 12/29/18 23:59 07:59 15:59 Intake Total 100 / 2300 1924 / 1924 Output Total 100 / 950 225 / 350 125 / 350 Balance 0 / 1350 1699 / 1574 -125 / 1574 Intake: IV Fluids 100 / 2300 1864 / 1864 0.9 % Sodium Chloride 1,000 ML 1764 / 1764 @ 100 mls/hr IVC .Q10H NGA Rx#: [id number] Zosyn 3.375 GM In 0.9 % Sodium 100 / 300 100 / 100 Chloride (Mini-Bag +) 100 ML @ 25 mls/hr IVPB Q8HR NGA Rx#: [id number] Oral 0 / 0 60 / 60 Output: Urine 100 / 100 225 / 350 125 / 350 Other: Meal npo Percent of Meal Consumed 0% Weight 55 kg Blood Glucose* 74 86 Patient Weight 12/29/18 23:59 Weight 55 kg - General physical appearance well nourished, no distress - Abdomen Abdomen: Present: bowel sounds present, soft, non tender (Mild incisional pain to palpation) - Labs 12/29/18 02:15 12/29/18 02:15 Diabetes panel 12/29/18 Range/Units 02:15 Sodium 142 (136-145) mEq/L Potassium 3.5 (3.5-5.1) mEq/L Chloride 110 H (98-107) mEq/L Carbon Dioxide 25 (23-29) mEq/L BUN 21 (8-23) mg/dL Creatinine 0.96 (0.70-1.30) mg/dL Glucose 82 (70-105) mg/dL Calcium 7.9 L (8.6-10.3) mg/dL Calcium panel 12/29/18 Range/Units 02:15 Calcium 7.9 L (8.6-10.3) mg/dL Pituitary panel 12/29/18 Range/Units 02:15 Sodium 142 (136-145) mEq/L Potassium 3.5 (3.5-5.1) mEq/L Chloride 110 H (98-107) mEq/L Carbon Dioxide 25 (23-29) mEq/L BUN 21 (8-23) mg/dL Creatinine 0.96 (0.70-1.30) mg/dL Glucose 82 (70-105) mg/dL Calcium 7.9 L (8.6-10.3) mg/dL Adrenal panel 12/29/18 Range/Units 02:15 Sodium 142 (136-145) mEq/L Potassium 3.5 (3.5-5.1) mEq/L Chloride 110 H (98-107) mEq/L Carbon Dioxide 25 (23-29) mEq/L BUN 21 (8-23) mg/dL Creatinine 0.96 (0.70-1.30) mg/dL Glucose 82 (70-105) mg/dL Calcium 7.9 L (8.6-10.3) mg/dL - VTE Documentation of Mechanical Device: Intermittent pneumatic compression device Consult Discharge Plan - Plan [facility]errals: [facility] [Primary Care Provider] -
--- NOTE | 2018-12-29 13:32 | Internal Med Progress Note ---
Hospitalist Progress Note - Encounter Date of Encounter: 12/29/18 Time of Encounter: 13:29 - Subjective Interval History: Patient doing better this morning. Pain is well controlled. NG tube had come out yesterday. Patient has passed flatus. Tolerating clear liquid diet. - Exam Vitals: Temp Pulse Resp BP Pulse Ox 97.5 F L 73 15 151/86 97 12/29/18 10:50 12/29/18 10:50 12/29/18 10:50 12/29/18 10:50 12/29/18 10:50 Exam: General: Patient is somnolent, mild distress, oriented x 3 ENT: Mucous membranes moist Respiratory: Good respiratory effort. Normal breath sounds. No wheezing or crackles. Cardiovascular: Regular rate and rhythm. s1 and s2 normal No clicks, rubs, gallops, or murmurs. No pedal edema Abdomen: Abdomen is soft, mildly tender. Bowel sounds are absent Musculoskeletal: Spontaneously moving all extremities Skin: warm, dry, intact. Neuro: Somnolent but easily awakes oriented x 3 normal cranial nerves, no focal deficits - Assessment and Plan (1) Small bowel obstruction Current Visit: Yes Status: Acute (2) Hypertensive urgency Current Visit: Yes Status: Acute (3) Hyperlipidemia Current Visit: Yes Status: Chronic (4) Hypothyroidism Current Visit: Yes Status: Chronic DVT Prophylaxis: Continue subcutaneous heparin - Summary of Assessment and Plan Summary of Assessment and Plan: Acute distal small bowel obstruction with small bowel ischemia: Status post exploratory laparotomy and small bowel resection. Postop day 3. Now on clear liquid diet and passing flatus. NG tube discontinued. Remains on SHOE TRIMMER morphine pump. Will wean down and place patient on sublingual oxycodone for pain as needed. Continue IV fluids and antibiotics. Essential hypertension: Continue Lopressor 2.5 mg every 6 ours. Hypothyroidism: Placed patient on levothyroxine Hyperlipidemia: Lipid profile within normal limits. DVT prophylaxis with subcutaneous heparin High risk for complications as patient is on the SHOE TRIMMER pump - Time Spent with Patient Total time spent is greater than 50% in coordination of care (as documented) at patient's floor/unit and/or counseling patient: Internal Medicine: Result - Labs CBC & Chem 7: 12/29/18 02:15 12/29/18 02:15 Labs: Short CBC 12/29/18 Range/Units 02:15 WBC 8.8 (4.3-11.1) K/mcL Hgb 12.0 L (12.9-16.9) g/dL Hct 37.9 (37.5-50.1) % Plt Count 96 L (140-400) K/mcL Neutrophils # 6.9 (1.6-8.9) K/mcL [facility] 12/29/18 02:15 Sodium 142 Potassium 3.5 Chloride 110 H Carbon Dioxide 25 BUN 21 Creatinine 0.96 Glucose 82 Calcium 7.9 L - VTE Documentation of Mechanical Device: Intermittent pneumatic compression device Consult Discharge Plan - Plan Referrals: [facility] [Primary Care Provider] - (3) Hyperlipidemia Qualifiers: Hyperlipidemia type: other hyperlipidemia Qualified Code(s): E78.49 - Other hyperlipidemia; E78.4 - Other hyperlipidemia (4) Hypothyroidism Qualifiers: Hypothyroidism type: other Qualified Code(s): E03.8 - Other specified hypothyroidism
[2018-12-29] MEDS: Ringers Solution, Lactated 1,000 ML IVC SCH (16:52)
[2018-12-30] MEDS: *HR* Metoprolol 5 MG/5 ML VIAL IVP SCH (06:37)
[2018-12-30] MEDS: *HR* Heparin 5,000 UNIT/ML VIAL SQ SCH ×3 (06:38→18:58)
[2018-12-30 07:57] LABS: Basophils % 0.3 %; Eosinophils # 0.1 K/mcL (0.0-0.6); Eosinophils % 2.2 %; Hematocrit 36.7 % (37.5-50.1); Hemoglobin 11.9 g/dL (12.9-16.9); Immature Granulocytes % 0.2 % (0-4); Lymphocytes # 1.3 K/mcL (0.6-4.6); Lymphocytes % 20.3 %; Mean Corpuscular HGB Conc 32.4 g/dL (31.6-35.5); Mean Corpuscular Hemoglobin 28.5 pg (28.0-33.3); Mean Platelet Volume 12.1 fL (9.4-12.4); Monocytes # 0.5 K/mcL (0.0-1.3); Monocytes % 7.8 %; Neutrophils # 4.4 K/mcL (1.6-8.9); Platelet Count 117 K/mcL (140-400); Red Blood Count 4.17 M/mcL (4.19-5.50); Red Cell Distribution Width 12.7 % (11.5-14.5); Segmented Neutrophils % 69.2 %; White Blood Count 6.3 K/mcL (4.3-11.1)
[2018-12-30 08:15] LABS: BUN/Creatinine Ratio 18 (6-26); Blood Urea Nitrogen 15 mg/dL (8-23); Calcium 7.8 mg/dL (8.6-10.3); Carbon Dioxide 27 mEq/L (23-29); Chloride 109 mEq/L (98-107); Glucose 104 mg/dL (70-105); Osmolality,Calculated 293 (280-300); Potassium 3.6 mEq/L (3.5-5.1); Sodium 141 mEq/L (136-145); eGFR For African Americans > 60 (> 60); eGFR For Non-African Americans > 60 (> 60)
[2018-12-30] MEDS: Piperacillin/Tazobactam 3.375 GM in 0.9 % Sodium Chloride Mini Bag 100 ML IVPB SCH ×2 (09:01→16:52)
[2018-12-30] MEDS: Ringers Solution, Lactated 1,000 ML IVC SCH (10:53)
--- NOTE | 2018-12-30 11:39 | Internal Med Progress Note ---
Hospitalist Progress Note - Encounter Date of Encounter: 12/30/18 Time of Encounter: 11:22 - Subjective Interval History: Patient continues to do well. Has had bowel movements. Tolerating clear liquid diet. Abdominal pain is well controlled. 5 out of 10 in severity at its worst. Doing well with oral medications. - Exam Vitals: Temp Pulse Resp BP Pulse Ox 98.2 F 57 15 168/86 96 12/30/18 10:14 12/30/18 10:14 12/30/18 10:14 12/30/18 10:14 12/30/18 10:14 Exam: General: Patient is somnolent, mild distress, oriented x 3 Respiratory: Good respiratory effort. Normal breath sounds. No wheezing or crackles. Cardiovascular: Regular rate and rhythm. s1 and s2 normal No clicks, rubs, gallops, or murmurs. No pedal edema Abdomen: Abdomen is soft, mildly tender. Bowel sounds are absent Musculoskeletal: Spontaneously moving all extremities Skin: warm, dry, intact. Neuro: Somnolent but easily awakes oriented x 3 normal cranial nerves, no focal deficits - Assessment and Plan (1) Small bowel obstruction Current Visit: Yes Status: Acute (2) Hypertensive urgency Current Visit: Yes Status: Acute (3) Hyperlipidemia Current Visit: Yes Status: Chronic (4) Hypothyroidism Current Visit: Yes Status: Chronic DVT Prophylaxis: Continue subcutaneous heparin - Summary of Assessment and Plan Summary of Assessment and Plan: Acute distal small bowel obstruction with small bowel ischemia: Status post exploratory laparotomy and small bowel resection. Postop day 4. Continues to do well. Tolerating clear liquid diet. Had bowel movements. Surgery following. Advance diet slowly per surgery recommendations. Essential hypertension: We will switch to oral Coreg. Stop IV Lopressor. Hypothyroidism: Continue levothyroxine. Hyperlipidemia: Lipid profile within normal limits. DVT prophylaxis with subcutaneous heparin Moderate risk for complications. - Time Spent with Patient Total time spent is greater than 50% in coordination of care (as documented) at patient's floor/unit and/or counseling patient: Internal Medicine: Result - Labs CBC & Chem 7: 12/30/18 06:59 12/30/18 06:59 Labs: Short CBC 12/30/18 Range/Units 06:59 WBC 6.3 (4.3-11.1) K/mcL Hgb 11.9 L (12.9-16.9) g/dL Hct 36.7 L (37.5-50.1) % Plt Count 117 L (140-400) K/mcL Neutrophils # 4.4 (1.6-8.9) K/mcL [facility] 12/30/18 06:59 Sodium 141 Potassium 3.6 Chloride 109 H Carbon Dioxide 27 BUN 15 Creatinine 0.84 Glucose 104 Calcium 7.8 L - VTE Documentation of Mechanical Device: Intermittent pneumatic compression device Consult Discharge Plan - Plan Referrals: [facility] [Primary Care Provider] - (3) Hyperlipidemia Qualifiers: Hyperlipidemia type: other hyperlipidemia Qualified Code(s): E78.49 - Other hyperlipidemia; E78.4 - Other hyperlipidemia (4) Hypothyroidism Qualifiers: Hypothyroidism type: other Qualified Code(s): E03.8 - Other specified hypothyroidism
--- NOTE | 2018-12-30 13:58 | AcuteCareSurgery Progress Note ---
Date of Encounter: 12/30/18 Time of Encounter: 13:56 - Assessment and Plan (1) S/P exploratory laparotomy Current Visit: Yes Status: Acute The patient is postop day 4 from a exploration with small bowel resection. Continuing to improve. Will start soft food diet today. DC IV fluids. If he continues along this course will consider likely discharge home within the next 24 hours. Subjective Patient reports: no new complaints, other (Patient states that he has had bowel movements and been passing flatus. Denies any nausea or vomiting and has been tolerating liquids. Has an increased appetite today.) Objective Vital Signs - Last 8 Hours Temp Pulse Resp BP Pulse Ox 12/30/18 13:52 97.9 F 74 15 165/57 97 12/30/18 13:22 65 185/82 12/30/18 10:14 98.2 F 57 15 168/86 96 12/30/18 08:59 59 155/71 12/30/18 07:08 98.0 F 59 15 166/77 94 Intake and Output 12/29/18 12/30/18 12/30/18 23:59 07:59 15:59 Intake Total 1253 / 4073 200 / 1300 1100 / 1300 Output Total 175 / 875 50 / 350 300 / 350 Balance 1078 / 3198 150 / 950 800 / 950 Intake: IV Fluids 653 / 2853 100 / 1200 1100 / 1200 0.9 % Sodium Chloride 1,000 ML 553 / 2553 @ 100 mls/hr IVC .Q10H NGA Rx#: [id number] Lactated Ringers 1,000 ML @ 75 1000 / 1000 mls/hr IVC .[id number] NGA Rx#: [id number] Zosyn 3.375 GM In 0.9 % Sodium 100 / 300 100 / 200 100 / 200 Chloride (Mini-Bag +) 100 ML @ 25 mls/hr IVPB Q8HR NGA Rx#: [id number] Oral 600 / 1220 100 / 100 Output: Urine 175 / 875 50 / 350 300 / 350 Other: Meal clears Percent of Meal Consumed 50% Stool Size Moderate # Voids 1 1 # Bowel Movements 1 Weight 55.2 kg Patient Weight 12/30/18 23:59 Weight 55.2 kg - General physical appearance well nourished, no distress - Respiratory normal expansion, normal respiratory effort - Abdomen Abdomen: Present: bowel sounds present, soft, tender (Minimally tender along the midline incision.) - Labs 12/30/18 06:59 12/30/18 06:59 Diabetes panel 12/30/18 Range/Units 06:59 Sodium 141 (136-145) mEq/L Potassium 3.6 (3.5-5.1) mEq/L Chloride 109 H (98-107) mEq/L Carbon Dioxide 27 (23-29) mEq/L BUN 15 (8-23) mg/dL Creatinine 0.84 (0.70-1.30) mg/dL Glucose 104 (70-105) mg/dL Calcium 7.8 L (8.6-10.3) mg/dL Calcium panel 12/30/18 Range/Units 06:59 Calcium 7.8 L (8.6-10.3) mg/dL Pituitary panel 12/30/18 Range/Units 06:59 Sodium 141 (136-145) mEq/L Potassium 3.6 (3.5-5.1) mEq/L Chloride 109 H (98-107) mEq/L Carbon Dioxide 27 (23-29) mEq/L BUN 15 (8-23) mg/dL Creatinine 0.84 (0.70-1.30) mg/dL Glucose 104 (70-105) mg/dL Calcium 7.8 L (8.6-10.3) mg/dL Adrenal panel 12/30/18 Range/Units 06:59 Sodium 141 (136-145) mEq/L Potassium 3.6 (3.5-5.1) mEq/L Chloride 109 H (98-107) mEq/L Carbon Dioxide 27 (23-29) mEq/L BUN 15 (8-23) mg/dL Creatinine 0.84 (0.70-1.30) mg/dL Glucose 104 (70-105) mg/dL Calcium 7.8 L (8.6-10.3) mg/dL - VTE Documentation of Mechanical Device: Intermittent pneumatic compression device Consult Discharge Plan - Plan Referrals: [facility] [Primary Care Provider] -
[2018-12-31] MEDS: Piperacillin/Tazobactam 3.375 GM in 0.9 % Sodium Chloride Mini Bag 100 ML IVPB SCH ×2 (01:42→09:00)
[2018-12-31] MEDS: *HR* Heparin 5,000 UNIT/ML VIAL SQ SCH (05:52)
[2018-12-31 07:52] VITALS: BP 178/85
--- NOTE | 2018-12-31 09:07 | AcuteCareSurgery Progress Note ---
<Mario AlbertoFrancisca Scottie - Last Filed: 12/31/18 09:04> Date of Encounter: 12/31/18 Time of Encounter: 08:15 - Assessment and Plan (1) Small bowel obstruction Current Visit: Yes Status: Acute Date of procedure: 12/27/18 Pre-op diagnosis: small bowel obstruction Post-op diagnosis: other (adhesions, ischemic bowel) Procedure: exploratory laparotomy small bowel resection Implants: none Complications: none Surgeon: Andrey Vera POD #4 as above (noted 69 cm of small bowel specimen sent to lab). Pathology remains pending at this time. Ischemia felt secondary to a closed loop obstruction. Patient is recovering quite nicely from surgery. He is having bowel function, ambulating and voiding without difficulty, and is requesting disposal. He is located discharge from a surgical perspective (discharge instructions per surgery have been placed in the DC plan) Subjective Patient reports: no new complaints, feels better, pain is less, tolerating liquids well, tolerating a regular diet, voiding w/o difficulty, flatus, bowel m ovement, afebrile Objective Vital Signs - Last 8 Hours Temp Pulse Resp BP Pulse Ox 12/31/18 07:48 98.9 F 69 18 178/85 97 Intake and Output 12/30/18 12/31/18 12/31/18 23:59 07:59 15:59 Intake Total 539 / 2079 100 / 100 Output Total 350 / 700 400 / 400 Balance 189 / 1379 -300 / -300 Intake: IV Fluids 539 / 1739 100 / 100 Lactated Ringers 1,000 ML @ 75 439 / 1439 mls/hr IVC .[id number] NGA Rx#: [id number] Zosyn 3.375 GM In 0.9 % Sodium 100 / 300 100 / 100 Chloride (Mini-Bag +) 100 ML @ 25 mls/hr IVPB Q8HR NGA Rx#: [id number] Oral 0 / 340 Output: Urine 350 / 700 400 / 400 Other: Meal Dinner Percent of Meal Consumed 5% - General physical appearance no distress, no pain - Eyes normal ocular movement - ENT atraumatic, normocephalic - Neck Neck exam: trachea midline - Respiratory normal expansion, normal respiratory effort - Cardiovascular Cardiovascular exam: Present: RRR - Abdomen Abdomen: Present: bowel sounds present, soft, tender (Expected postoperative) - Incision Incision: Present: clean and dry, intact - Integumentary no rash - Neurologic normal sensation - Musculoskeletal normal posture - Psychiatric oriented to time, oriented to person, oriented to place, speech is normal, memory intact - Labs 12/30/18 06:59 12/30/18 06:59 - VTE Documentation of Mechanical Device: Intermittent pneumatic compression device Consult Discharge Plan - Plan Instructions: Hypothyroidism (DC), Bowel Resection (DC), Chronic Hypertension (DC) Additional Instructions: General Surgical Discharge Instructions 1. No pushing, pulling, or lifting greater than 15 lbs for 6 weeks. 2. You may remove your dressings and shower beginning today, but no tub baths, soaking, or swimming for 2 weeks. You may cover the incision with a dry dressing if desired. 3. No driving for two weeks unless otherwise specified and then you may resume driving when you are off narcotics and are safe to react in a car. 4. Take ibuprofen every 8 hours for discomfort. If this does not relieve discomfort, you may take the as needed Percocet. Eat a small snack with pain medication as this will help reduce the risk of nausea. Take narcotics as directed. Do not take more narcotics then directed and do not share your narcotics with any other person. Do not drink alcohol while on narcotics. You can take the Zofran/ondansetron if needed for nausea or with a dose of narcotics to prevent nausea. 5. Take stool softeners (Colace) or a water based laxative (Miralax) while taking narcotics. You may hold for loose stools. 6. Report any fevers greater than 100.5F, increase abdominal discomfort, drainage that looks like pus, increased redness or pain at the surgical site, or any vomiting. 7. Report any pain in the calves, shortness of breath, or rapid heartbeat. 8. Follow-up in the office as directed. 9. If you were prescribed antibiotics, do not stop them without talking to your provider. Referrals: Francisca Llanes CNP [Advanced Practice Nurse] - [facility]/11/19 10:30 [facility] - ([facility] week [facility] f/u. Thank you) Prescriptions: Carvedilol [Coreg] 3.125 mg PO BIDWM #60 tablet OxyCODONE/APAP 5/325 [Percocet 5/325 MG] 1 each PO Q6HR PRN 5 Days #14 tablet PRN Reason: Moderate Pain Levothyroxine [Synthroid] 50 mcg PO 629 #30 tablet Lisinopril [Zestril] 5 mg PO DAILY #30 tablet <Fredo Centeno - Last Filed: 12/31/18 12:00> Date of Encounter: 12/31/18 Objective Vital Signs - Last 8 Hours Temp Pulse Resp BP Pulse Ox 12/31/18 07:48 98.9 F 69 18 178/85 97 Intake and Output 12/30/18 12/31/18 12/31/18 23:59 07:59 15:59 Intake Total 539 / 2079 100 / 220 120 / 220 Output Total 350 / 700 400 / 500 100 / 500 Balance 189 / 1379 -300 / -280 20 / -280 Intake: IV Fluids 539 / 1739 100 / 100 Lactated Ringers 1,000 ML @ 75 439 / 1439 mls/hr IVC .[id number] NGA Rx#: [id number] Zosyn 3.375 GM In 0.9 % Sodium 100 / 300 100 / 100 Chloride (Mini-Bag +) 100 ML @ 25 mls/hr IVPB Q8HR NGA Rx#: [id number] Oral 0 / 340 120 / 120 Output: Urine 350 / 700 400 / 500 100 / 500 Other: Meal Dinner Breakfast Percent of Meal Consumed 5% 40% - Labs 12/30/18 06:59 12/30/18 06:59 - Attending Attestation I have personally performed a face to face evaluation on this patient. I have reviewed and agree with the care plan. History and Exam by me shows: The patient is seen and evaluated on morning rounds with the acute care surgery team. The patient is having bowel movements and flatus. No evidence of infection. He is ready for discharge. Follow-up acute care surgery clinic Fredo Centeno MD FACS
--- NOTE | 2018-12-31 11:00 | Discharge Summary ---
- NOTES TO OUTPATIENT PROVIDER Notes to Outpatient Provider: Patient with history of uncontrolled hypertension was hospitalized here with distal small bowel obstruction. Underwent surgery and was found to have small bowel ischemia and underwent bowel resection. Has been recovering well since then. Stable to be discharged today per surgery. Orders not resulted at time of discharge: Pending orders 12/27/18 01:37 Surgical Pathology [PTH] Routine Date of Encounter: 12/31/18 Time of Encounter: 10:57 - Discharge Diagnosis (1) Small bowel obstruction Priority: Secondary Status: Acute (2) Hypertensive urgency Priority: Secondary Status: Acute (3) Hyperlipidemia Priority: Secondary Status: Chronic Qualifiers: Hyperlipidemia type: other hyperlipidemia Qualified Code(s): E78.49 - Other hyperlipidemia; E78.4 - Other hyperlipidemia (4) Hypothyroidism Priority: Secondary Status: Chronic Qualifiers: Hypothyroidism type: other Qualified Code(s): E03.8 - Other specified hypothyroidism (5) Essential hypertension Priority: Secondary Status: Acute (6) S/P exploratory laparotomy Priority: Secondary Status: Acute (7) S/P small bowel resection Priority: Secondary Status: Acute Hospital course: Mr. Appiah is a 78 year old male Patient with history of uncontrolled hypertension was hospitalized here with distal small bowel obstruction. Underwent surgery and was found to have small bowel ischemia and underwent bowel resection. His been recovering well since then. Now tolerating diet well. His been cleared for discharge from a surgical standpoint. Patient also has uncontrolled hypertension and was having hypertensive urgency initially. He was treated with intravenous medications to control his blood pressure initially. Now his been transitioned to oral medications. He will be discharged home on Coreg and lisinopril. He will follow up with his primary care provider for further management. He was also diagnosed with hypothyroidism and has been placed on Synthroid. Discharge discussed with: patient - Time Spent with Patient Total time spent providing and/or coordinating discharge services: Time spent: Greater than 30 minutes (32 min) - Discharge Medications Prescriptions: New Carvedilol [Coreg] 3.125 mg PO BIDWM #60 tablet OxyCODONE/APAP 5/325 [Percocet 5/325 MG] 1 each PO Q6HR PRN 5 Days #14 tablet PRN Reason: Moderate Pain Levothyroxine [Synthroid] 50 mcg PO 0630 #30 tablet Lisinopril [Zestril] 5 mg PO DAILY #30 tablet Home Medications: Carvedilol [Coreg] 3.125 mg PO BIDWM #60 tablet 12/31/18 [Rx] Levothyroxine [Synthroid] 50 mcg PO 0630 #30 tablet 12/31/18 [Rx] Lisinopril [Zestril] 5 mg PO DAILY #30 tablet 12/31/18 [Rx] OxyCODONE/APAP 5/325 [Percocet 5/325 MG] 1 each PO Q6HR PRN 5 Days #14 tablet 12/31/18 [Rx] Allergies/Adverse Reactions: Allergy/AdvReac Type Severity Reaction Status Date / Time No Known Allergies Allergy Verified 12/27/18 14:14 Date of admission: 12/26/18 14:47 Primary care physician: PCP [place] Consults: 12/26/18 11:49 Consult to Surgery [CONS] Stat Consulting Provider: Acute Care Surgery Reason for Consult: SBO Call Completed: Yes 12/26/18 15:15 Consult to Nutrition [CONS] Routine Comment: Consulting Provider: NUTRITION Reason for Dietary Consult: Other Other:: Weight loss, very active mower and walker 12/27/18 17:35 Consult to Occupational Therapy [CONS] Routine Comment: Evaluate, develop and implement POC Reason for Consult: deconditioning, bmat 3 Does patient have active BEDREST order?: No Is patient medically & hemodynamically stable?: Yes Patient assessed for mobility or mobilized this visit?: No Consult to Physical Therapy [CONS] Routine Comment: Evaluate, develop and implement POC Reason for Consult: deconditioning, bmat 3 Does patient have active BEDREST order?: No Is patient medically & hemodynamically stable?: Yes Patient assessed for mobility or mobilized this visit?: No Discharging clinician: Gab Green Anticipated date of discharge: 12/31/18 - Constitutional Vitals: Temp Pulse Resp BP Pulse Ox 98.9 F 69 18 178/85 97 12/31/18 07:48 12/31/18 07:48 12/31/18 07:48 12/31/18 07:48 12/31/18 07:48 Exam: General: Patient is alert, no acute distress, oriented x 3 ENT: Mucous membranes moist Respiratory: Good respiratory effort. Normal breath sounds. No wheezing or crackles. Cardiovascular: Regular rate and rhythm. s1 and s2 normal No clicks, rubs, gallops, or murmurs. No pedal edema Abdomen: Abdomen is soft, mildly tender. Bowel sounds are present Musculoskeletal: Spontaneously moving all extremities Skin: warm, dry, intact. Neuro: Alert oriented x 3 normal cranial nerves, no focal deficits - Patient Status Disposition: Home Health Service Condition: Good Functional capacity at discharge: uses cane/walker Overall status at discharge: patient is progressing back to baseline - Discharge Instructions Instructions: Bowel Resection (DC), Chronic Hypertension (DC), Hypothyroidism (DC) Follow Up With: Francisca Llanes HAND TWISTER [Advanced Practice Nurse] - 01/11/19 10:30 am [facility] - (In 1 week) Additional Instructions: General Surgical Discharge Instructions 1. No pushing, pulling, or lifting greater than 15 lbs for 6 weeks. 2. You may remove your dressings and shower beginning today, but no tub baths, soaking, or swimming for 2 weeks. You may cover the incision with a dry dressing if desired. 3. No driving for two weeks unless otherwise specified and then you may resume driving when you are off narcotics and are safe to react in a car. 4. Take ibuprofen every 8 hours for discomfort. If this does not relieve discomfort, you may take the as needed Percocet. Eat a small snack with pain medication as this will help reduce the risk of nausea. Take narcotics as directed. Do not take more narcotics then directed and do not share your narcot ics with any other person. Do not drink alcohol while on narcotics. You can take the Zofran/ondansetron if needed for nausea or with a dose of narcotics to prevent nausea. 5. Take stool softeners (Colace) or a water based laxative (Miralax) while taking narcotics. You may hold for loose stools. 6. Report any fevers greater than 100.5F, increase abdominal discomfort, drainage that looks like pus, increased redness or pain at the surgical site, or any vomiting. 7. Report any pain in the calves, shortness of breath, or rapid heartbeat. 8. Follow-up in the office as directed. 9. If you were prescribed antibiotics, do not stop them without talking to your provider. - Diet and Activity Diet: low fat, low cholesterol, low salt diet - VTE Documentation of Mechanical Device: Intermittent pneumatic compression device
== END 2018-12-31 12:54 | disposition home or self-care (01) | DRG 329 ==
LOC: EMEROOARM 11:37 → 3ANU 11:37 → SUATTDRO 14:47
PROVIDERS: ADMIT Internal Medicine; ATTEND Internal Medicine